=== PATIENT | male | born 1995 | race Two or more races ===

== ENCOUNTER 2019-05-23 16:25 | Emergency (ER) | payer SELFPAY ==
[~2019-05-23] VITALS: Ht 162.6 cm; Wt 70.3 kg
[2019-05-23] MEDS ORDERED: LET TOPICAL SOLUTION 8 ML UDC ONE (16:35)
[2019-05-23] MEDS ORDERED: TDAP DIPH,PERTUSS,TET VAC/PF 0.5 ML DISP.SYRIN IM ONE ×2 (16:39→16:45)
[2019-05-23] MEDS ORDERED: MORPHINE SULFATE 4 MG/1 ML DISP.SYRIN ONE ×2 (16:42→20:50)
[2019-05-23] MEDS ORDERED: ONDANSETRON 4 MG/2 ML VIAL ONE (16:43)
[2019-05-23] MEDS ORDERED: ONDANSETRON 4 MG/2 ML VIAL IV ONE (16:45)
[2019-05-23] MEDS ORDERED: LET TOPICAL SOLUTION 8 ML UDC TP ONE (16:45)
[2019-05-23] MEDS ORDERED: CEFTRIAXONE 1 G in IV DEXTROSE 5% 50 ML IV ONE (16:45)
[2019-05-23] MEDS ORDERED: LIDOCAINE HCL 2% 20 ML VIAL TP ONE (16:45)
[2019-05-23] MEDS ORDERED: SODIUM BICARBONATE 4.2 % (NEUT) 5 ML VIAL TP ONE (16:45)
[2019-05-23] MEDS ORDERED: MORPHINE SULFATE 2 MG/1 ML DISP.SYRIN IV ONE (16:45)
[2019-05-23] MEDS ORDERED: CEFTRIAXONE 1 G VIAL ONE (16:50)
--- NOTE | 2019-05-23 16:55 | NUR ---
PT ISIN ROOM #5A. DR MINAALUATED THE PT. PT STATED THAT HE JUST HAD TETATANUS VACCINE IM IN URGENT CARE FACILITY TODAY.
--- NOTE | 2019-05-23 17:20 | NUR ---
CALLED [facility] FOR HLOC TRANSFER. CHARGE NURSE TO CALL BACK PER .
[2019-05-23] MEDS ORDERED: HYDROMORPHONE 1 MG/1 ML DISP.SYRIN ONE ×2 (17:21→17:41)
[2019-05-23] MEDS ORDERED: HYDROMORPHONE 1 MG/1 ML DISP.SYRIN IV ONE ×2 (17:30→17:45)
--- NOTE | 2019-05-23 17:30 | NUR ---
CALLED [facility] MULTIPLE TIMES ([phone]), CALLS DID NOT GO THROUGH.
--- NOTE | 2019-05-23 17:50 | NUR ---
CALLED [facility] AND SPOKE WITH [facility] REGARDING HLOC TRANSFER. PER [facility] THEY CAN NOT ACCEPT THE PT BECAUSE HE DOES NOT MEET TRAUMA CRITERIA.
--- NOTE | 2019-05-23 18:10 | NUR ---
DR. DOE SPOKE WITH [facility] [place] CELL PHONE (HOSPITAL TELEPHONES NOT WORKING AT THIS TIME).
--- NOTE | 2019-05-23 18:20 | NUR ---
DR. DOE SPOKE WITH [facility] WHO ACCEPTED THE PT. (ORTHO) AND (ERMD) ACCEPTING, FOR REPORT, CASE#[id number].
--- NOTE | 2019-05-23 18:32 | NUR ---
CALLED [facility] FOR TRANSPORT, ETA 2200, TRIP#[id number].
--- NOTE | 2019-05-23 18:40 | NUR ---
SBAR REPORT GIVEN TO AR AT [facility] ([phone]) VIA TELEPHONE.
[2019-05-23] MEDS ORDERED: NEOMY/BACITRA/POLYMYXIN B OINT UD PACKET TP ONE (18:43)
--- NOTE | 2019-05-23 19:00 | NUR ---
RECEIVED HAND OFF AND SBAR FROM OUTGOING DAY SHIFT RN PT IS ON HIGH GUILLAUME'S, AWAKE, +SALINE LOCK G20 TO R AC NOTED DRESSED PUNCTURE WOUND TO L MIDDLE FINGER +NAIL STILL PROTRUDING ABLE TO SPEAK CLEAR AND COMPLETE SENTENCES AMBULATORY. ABLE TO USE RESTROOM PT ON NPO PENDING CASH APPLICATIONS CLERK, ETA 2200 KEPT WARM DRY AND COMFORTABLE NOT IN ANY APPARENT DISTRESS
[2019-05-23] MEDS ORDERED: IV NS 1000 ML 1,000 ML IV ONE (20:15)
--- NOTE | 2019-05-23 20:40 | NUR ---
PT KEPT WARM DRY AND COMFORTABLE CMS CHECK DONE PT C/O PAIN RETURNING TO #3 FINGER OF LEFT ARM SMILING BUT DESCRIBES PAIN IVF INTACT AND INFUSING WELL STILL NPO AMBULANCE ETA TO [facility] AT 2200 Addendum: 05/23/19 at 2042 by MARICASTIL BLEEDING CONTROLLED DRESSING INTACT WITH NAIL PROTRUDING CMS CHECK DONE
[2019-05-23] MEDS ORDERED: MORPHINE SULFATE 4 MG/1 ML DISP.SYRIN IV ONE (21:00)
--- NOTE | 2019-05-23 21:25 | NUR ---
PT IS ASLEEP BUT EASILY ROUSED. PT STATES PAIN DECREASED TO 7/10 AFTER IV PAIN MEDS NAD MONITORED ACCORDINGLY KEPT WARM DRY AND COMFORTABLE NPO ETA AMBULANCE AT 2200
--- NOTE | 2019-05-23 22:16 | NUR ---
CONFIRMED WITH [facility], AMBULANCE IS ENROUTE PT WILL BE PICKED UP IN THE NEXT 20MINS
--- NOTE | 2019-05-23 23:58 | NUR ---
Patient Tranfers to outside Facility Physician: RHIANNA Location: [facility]
== END 2019-05-24 00:20 | disposition short-term general hospital (02) ==
LOC: ER 16:27
DX: S61.343A Puncture wound with foreign body of left middle finger with damage to nail, initial encounter (principal); W34.09XA Accidental discharge from other specified firearms, initial encounter; Y93.89 Activity, other specified; Y92.89 Other specified places as the place of occurrence of the external cause; Y99.8 Other external cause status
CPT/HCPCS: 73140; 90471; 90715; 96365; 96375; 96376; 99285; J0696; J1170 ×2; J2270 ×2; J2405; J3490; A4663; J7030